=== PATIENT | female | born 2000 | race Two or more races ===

== ENCOUNTER 2023-01-07 23:37 | Emergency (ER) | payer SELFPAY ==
[2023-01-07 23:42] VITALS: BP 110/70; PULSE 74; RESP 18; TEMP 36.7; O2SAT 98; BMI 25.7
--- NOTE | 2023-01-07 23:51 | ED_ITS ---
HPI - Abdominal Pain General Chief Complaint: Abdominal Pain Stated Complaint: FLANK PAIN, LEFT SIDE Time Seen by Provider: 01/07/23 23:51 History of Present Illness HPI narrative: Patient presents to emergency department complaining of left flank pain. Patient states pain started on Sunday and has been radiating down to her left lower quadrant. 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 She states the pain started sunday, 1 day after her menses. Denies any fever, chills, cough. Denies any chest, shortness of breath. Denies any upper respiratory infection symptoms. She denies any nausea, vomiting, diarrhea, or constipation. Denies any vaginal discharge. She has a small amount of dysuria thinks that she could have a bladder infection. She denies any trauma. Related Data Home Medications Medication Instructions Recorded Confirmed No Known Home Medications 01/07/23 01/07/23 Previous Rx's Medication Instructions Recorded acetaminophen 300 mg-codeine 30 mg 1 tab PO Q8H PRN pain 5 days #14 01/08/23 tablet tabs cyclobenzaprine 10 mg tablet 10 mg PO Q8H PRN muscle spasm 5 01/08/23 days #15 tabs Allergies Allergy/AdvReac Type Severity Reaction Status Date / Time No Known Drug Allergies Allergy Verified 01/07/23 23:46 Review of Systems ROS Status of ROS 10 or more systems reviewed and unremarkable except as noted in history and below [facility] Social History Smoking status: Current every day smoker Exam Narrative Exam Narrative: Nurses notes and vital signs reviewed and patient is not hypoxic. General: Nontoxic, Well-appearing and in no apparent distress. Skin: Warm, dry, no pallor noted. No Rash Head: Normocephalic, atraumatic. Neck: Supple, non-tender. Eye: Pupils are equal, round and EOMI. No scleral icterus. Ears, Nose, Mouth, and Throat: TM clear, no posterior oropharynx erythema or nasal mucosal hypertrophy, uvula is mid-line Oral mucosa is moist Cardiovascular: Regular Rate and Rhythm without murmur, gallop or rub. Respiratory: No accessory muscle use or respiratory distress. Lungs are clear to auscultation, no wheezing, rales or rhonchi Chest Wall: no tenderness Back: No midline thoracic or lumbar vertebral tenderness. +left CVA tenderness Musculoskeletal: normal ROM, no calf or popliteal tenderness, no lower extremity edema/swelling GI: Abdomen is soft, non-distended. Normal bowel sounds. mild llq tenderness to palpation. No rebound, guarding, or rigidity noted. Neurological: A&O x4. No cranial nerve dysfunction observed. No truncal ataxia. Moves all extremities. Sensation intact. Psychiatric: Cooperative and interactive. Normal mood and affect. Constitutional Vital Signs, click to edit/add: Last Vital Signs Temp 98.0 F 01/07/23 23:42 Pulse 74 01/07/23 23:42 Resp 18 01/07/23 23:42 BP 110/70 01/07/23 23:42 Pulse Ox 98 01/07/23 23:42 O2 Del Method Room Air 01/07/23 23:42 Course Vital Signs Vital signs: Vital Signs Temperature 98.0 F 01/07/23 23:42 Pulse Rate 74 01/07/23 23:42 Respiratory Rate 18 01/07/23 23:42 Blood Pressure 110/70 01/07/23 23:42 Pulse Oximetry 98 01/07/23 23:42 Oxygen Delivery Method Room Air 01/07/23 23:42 Temperature 98.0 F 01/07/23 23:42 Pulse Rate 74 01/07/23 23:42 Respiratory Rate 18 01/07/23 23:42 Blood Pressure 110/70 01/07/23 23:42 Pulse Oximetry 98 01/07/23 23:42 Oxygen Delivery Method Room Air 01/07/23 23:42 MDM - Abdominal Pain MDM Narrative Medical decision making narrative: Patient thinks she has a urinary tract infection. Studies were done. She has mild leukocytosis process of the labs are unre markable. Urinalysis does not show any signs of infection has trace blood. CT scan of the abdomen and pelvis was done does not show anything acute. There are some chronic lesions to the left kidney and the ovaries were discussed with the patient. The patient is nontoxic, pain is well controlled. She is stable for outpatient follow-up. She will follow-up with urology, and her doctor in [place]. At this time the patient is without objective evidence of an acute process requiring hospitalization or inpatient management. The patient has remained hemodynamically stable. No additional indication for emergent studies at this time. I answered all questions. Discussed discharge instructions including standard anticipatory guidance and what should prompt a return to the emergency department, including if they get worse are not getting better or develops any new or concerning symptoms. I've given them specific time frame in which to follow-up, and who to follow-up with. The patient demonstrates understanding. Patient is nontoxic and stable for discharge with outpatient follow-up. This note was created with the assistance of a speech recognition program. Although the intention is to generate documents that actually reflects the content of the visit, no guarantees can be provided that every mistake has been identified and corrected by editing. Differential Diagnosis Differential diagnosis: Likely abdominal pain and calculus of kidney Lab Data Attestation: I reviewed the patient's lab results. Labs: Lab Results 01/08/23 01/08/23 Range/Units 00:00 00:05 WBC 12.1 H (4.0-11.0) 10^3/uL RBC 4.58 (4.20-5.40) 10^6/uL Hgb 13.8 (12.0-16.0) g/dL Hct 39.3 (36.0-48.0) % MCV 85.8 (81.0-99.0) fL MCH 30.1 (26.7-34.0) pg MCHC 35.1 (29.9-35.2) g/dL RDW 12.2 (11.0-15.0) % Plt Count 271 (150-450) 10^3/uL MPV 10.2 (9.5-13.5) fL Neut % (Auto) 68.1 (43.0-75.0) % Lymph % (Auto) 24.3 (20.5-60.0) % [place] % (Auto) 4.2 (1.7-12.0) % Eos % (Auto) 2.6 (0.9-7.0) % Baso % (Auto) 0.4 (0.2-2.0) % Neut # (Auto) 8.2 H (1.4-6.5) 10^3/uL Lymph # (Auto) 2.9 (1.2-3.8) 10^3/uL [place] # (Auto) 0.5 (0.3-0.8) 10^3/uL Eos # (Auto) 0.3 (0.0-0.7) 10^3/uL Baso # (Auto) 0.1 (0.0-0.1) 10^3/uL Abs Immat Gran (auto) 0.05 H (0.00-0.03) 10^3/uL Imm/Tot Granulo (auto) 0.4 (0.0-0.5) % Sodium 144 (136-145) mmol/L Potassium 3.6 (3.5-5.1) mmol/L Chloride 105 (98-107) mmol/L Carbon Dioxide 27.2 (21.0-32.0) mmol/L Anion Gap 15.4 BUN 12.0 (7.0-18.0) mg/dL Creatinine 1.00 (0.55-1.02) mg/dL Est GFR ( Amer) >60 (>=60) Est GFR (Non-Af Amer) >60 (>=60) BUN/Creatinine Ratio 12.0 Glucose 133 H (74-106) mg/dL Calcium 8.9 (8.5-10.1) mg/dL Total Bilirubin 0.3 (0.2-1.0) mg/dL AST 11 L (15-37) U/L ALT 19 (14-59) U/L Alkaline Phosphatase 79 (46-116) U/L Total Protein 7.8 (6.4-8.2) g/dL Albumin 4.3 (3.4-5.0) g/dL Globulin 3.5 g/dL Albumin/Globulin Ratio 1.2 Urine Color Lt. yellow (YELLOW) Urine Clarity Clear (CLEAR) Urine pH 6.0 (5.0-9.0) Ur Specific [place] 1.020 (1.005-1.025) Urine Protein Negative (NEG/TRACE) mg/dL Urine Glucose (UA) Negative (NEGATIVE) mg/dL Urine Ketones Negative (NEGATIVE) mg/dL Urine Occult Blood Trace-i (NEGATIVE) Urine Nitrite Negative (NEGATIVE) Urine Bilirubin Negative (NEGATIVE) Urine Urobilinogen 0.2 (0.2-1.0) EU/dL Ur Leukocyte Esterase Negative (NEGATIVE) Discharge Plan Discharge Chief Complaint: Abdominal Pain Clinical Impression: Hematuria, Ovarian cyst, Flank pain, Tuberous sclerosis syndrome Patient Disposition: Home, Self-Care Time of Disposition Decision: 01:50 Condition: Good Mode of Transportation: Private Vehicle Prescriptions / Home Meds: New cyclobenzaprine 10 mg tablet 10 mg PO Q8H PRN (Reason: muscle spasm) 5 Days Qty: 15 0RF acetaminophen-codeine 300-30 mg tablet 1 tab PO Q8H PRN (Reason: pain) 5 Days Qty: 14 0RF No Action No Known Home Medications Instructions: Ovarian Cyst (ED), Hematuria (ED), Flank Pain (ED) Additional Instructions: The headache the medication as instructed. He needs follow-up as an outpatient with primary care doctor to arrange for ultrasound, and follow up with urology and Dr. Tobias as needed. Return to the emergency department with a possible concerns as discussed. Stand Alone Forms: Portal Instructions Referrals: JERRELL AVENDANO APRN [Physician] - 01/09/23 Discharge Date/Time: 01/08/23 02:50
--- NOTE | 2023-01-08 00:03 | CT_ITS ---
[address] [address] Patient Name: WILEY ROSENBAUM MRN: [id number] date: 2000 Sex: F Assigned Patient Location: ER Current Patient Location: Accession/Order Number: [id number] Exam Date: 01/08/2023 00:10 Report Date: 01/08/2023 01:30 At the request of: PRISCILLA SNYDER Procedure: CT abdomen pelvis wo con EXAM: CT abdomen pelvis wo con HISTORY: flank pain COMPARISON: None. TECHNIQUE: CT of the abdomen and pelvis without intravenous contrast. Dose reduction techniques were achieved by using automated exposure control and/or adjustment of mA and/or kV according to patient size and/or use of iterative reconstruction technique. FINDINGS: TUBES AND IMPLANTS: None. LOWER CHEST: Mild scattered cystic lung changes, variably sized small cysts with thin chavis without groundglass, normal intervening lung. Two adjacent left lower lobe lung nodules measuring up to 4 millimeters. ABDOMEN and PELVIS ABDOMINAL WALL AND SOFT TISSUES: Unremarkable. BONES: There are multiple scattered sclerotic lesions seen in the axial and appendicular skeleton. The largest seen in L1 measuring up to 2 centimeters. ARTERIES: No aortoiliac aneurysm. Incompletely evaluated VEINS: Incompletely evaluated LYMPH NODES: Unremarkable. PERITONEUM/ RETROPERITONEUM: Unremarkable. BOWEL: No obstruction. APPENDIX: Unremarkable LIVER: Subcentimeter fat density lesions are seen. GALLBLADDER: Unremarkable. BILE DUCTS: Not dilated SPLEEN: Unremarkable. PANCREAS: Unremarkable. ADRENALS: A 2.1 centimeter left adrenal hypodense lesion is identified. KIDNEYS/ URETERS: Right is surgically absent. Multiple left renal lesions some of which appear hyperdense which demonstrate fat density. No stones or hydronephrosis. REPRODUCTIVE ORGANS: Bilateral low-density lesions are seen within the ovaries measuring up to 1.9 centimeters, likely physiologic. URINARY BLADDER: Unremarkable. CT/CT abdomen pelvis wo con IMPRESSION: 1. No evidence of acute abdominopelvic process. 2. No evidence of obstructive uropathy. 3. Constellation of findings suggesting tuberous sclerosis complex including cystic changes of the lung, sclerotic bone lesions and renal lesions suggesting angiomyolipoma and multiple hyperdense lesions which may represent proteinaceous cysts vs renal cell carcinoma. Renal MR for further evaluation as clinically warranted. 4. Bilateral low-density lesions are seen within the ovaries measuring up to 1.9 centimeters, likely physiologic. Electronically authenticated by: HOLDEN CERRATO Date: 01/08/2023 01:30
[2023-01-08 00:16] LABS: Basophils Absolute Auto 0.1 10^3/uL (0.0-0.1); Basophils Percent Auto 0.4 % (0.2-2.0); Eosinophils Absolute Auto 0.3 10^3/uL (0.0-0.7); Eosinophils Percent Auto 2.6 % (0.9-7.0); Hematocrit 39.3 % (36.0-48.0); Hemoglobin 13.8 g/dL (12.0-16.0); Immature Granulocytes Abs Auto 0.05 10^3/uL (0.00-0.03); Immature Granulocytes Pct Auto 0.4 % (0.0-0.5); Lymphocytes Absolute Auto 2.9 10^3/uL (1.2-3.8); Lymphocytes Percent Auto 24.3 % (20.5-60.0); Mean Corpuscular HGB Conc 35.1 g/dL (29.9-35.2); Mean Corpuscular Hemoglobin 30.1 pg (26.7-34.0); Mean Corpuscular Volume 85.8 fL (81.0-99.0); Mean Platelet Volume 10.2 fL (9.5-13.5); Monocytes Absolute Auto 0.5 10^3/uL (0.3-0.8); Monocytes Percent Auto 4.2 % (1.7-12.0); Neutrophils Absolute Auto 8.2 10^3/uL (1.4-6.5); Neutrophils Percent Auto 68.1 % (43.0-75.0); Platelet Count 271 10^3/uL (150-450); Red Blood Count 4.58 10^6/uL (4.20-5.40); Red Cell Distribution Width 12.2 % (11.0-15.0); White Blood Count 12.1 10^3/uL (4.0-11.0)
[2023-01-08 00:30] LABS: Alanine Aminotransferase 19 U/L (14-59); Albumin Globulin Ratio 1.2; Albumin Level 4.3 g/dL (3.4-5.0); Alkaline Phosphatase 79 U/L (46-116); Anion Gap 15.4; Aspartate Amino Transferase 11 U/L (15-37); Bilirubin Total 0.3 mg/dL (0.2-1.0); Calcium 8.9 mg/dL (8.5-10.1); Carbon Dioxide 27.2 mmol/L (21.0-32.0); Chloride 105 mmol/L (98-107); Estimated GFR (African America >60 (>=60); Estimated GFR (Non-African Ame >60 (>=60); Globulin 3.5 g/dL; Glucose 133 mg/dL (74-106); Potassium 3.6 mmol/L (3.5-5.1); Sodium 144 mmol/L (136-145); Total Protein 7.8 g/dL (6.4-8.2)
[2023-01-08 00:40] LABS: Bilirubin Urine NEGATIVE (NEGATIVE); Blood Urine TRACE-I (NEGATIVE); Clarity Urine CLEAR (CLEAR); Color Urine LT. YELLOW (YELLOW); Glucose Urine UA NEGATIVE (NEGATIVE); Ketones Urine NEGATIVE (NEGATIVE); Leukocyte Esterase Urine NEGATIVE (NEGATIVE); Nitrite Urine NEGATIVE (NEGATIVE); Protein Urine NEGATIVE (NEG/TRACE); Urobilinogen Urine 0.2 EU/dL (0.2-1.0)
[2023-01-08 00:41] LABS: Urine Microscopic Indicated NO
[2023-01-08] MEDS: ONDANSETRON PF 4 MG/2 ML VIAL IV (00:54)
[2023-01-08] MEDS: KETOROLAC TROMETHAMINE 30 MG/ML VIAL IVP (00:54)
[2023-01-08] MEDS: 0.9 % SODIUM CHLORIDE 1,000 ML 999 ML IV (00:54)
== END 2023-01-08 02:50 | disposition home or self-care (01) ==
PROVIDERS: Emergency Provider Emergency Medicine
DX: R10.9 Unspecified abdominal pain (principal); R31.9 Hematuria, unspecified; N83.209 Unspecified ovarian cyst, unspecified side; N26.9 Renal sclerosis, unspecified; F17.210 Nicotine dependence, cigarettes, uncomplicated; Z90.5 Acquired absence of kidney
CPT/HCPCS: 36415; 74176; 80053; 81003; 85025; 96374; 99284